=== PATIENT | male | born 1960 | race Caucasian/White ===

== ENCOUNTER 2019-06-16 11:03 | Emergency (ER) | payer OTHER ==
[~2019-06-16] VITALS: Ht 177.8 cm; Wt 95.5 kg
[~2019-06-16 11:03] MED LIST: COLC0.6T6 PO; LOSA50TA14 PO
[2019-06-16 11:36] VITALS: Ht 177.8 cm; Wt 95.5 kg
--- NOTE | 2019-06-16 12:43 | ERD ---
ER Documentation Chief Complaint Chief Complaint Dizziness/weakness since 1000am HPI Patient with history of hypertension and long history of smoking. No history of cardiac issues. This morning while sitting outside and smoking patient had sudden onset chest discomfort lasting 2 to 3 seconds and since then has been asymptomatic. No shortness of breath no chest pain. No exertional symptoms. No headache. Describes a sensation of weakness with no focality. No fever or chills. No nausea or vomiting. Takes intermittent blood pressure meds as needed. No drugs or alcohol. ROS All systems reviewed and are negative except as per history of present illness. Medications Home Meds Reported Medications Colchicine* (Colcrys*) 0.6 Mg Tablet, 0.6 MG PO NEEDED, TAB 06/16/19 Losartan Potassium* (Losartan Potassium*) 50 Mg Tablet, 50 MG PO NEEDED, TAB 06/16/19 Allergies Allergies: Coded Allergies: No Known Allergy (Unverified , 06/16/19) PMhx/Soc History of Surgery: No Anesthesia Reaction: No Hx Neurological Disorder: No Hx Respiratory Disorders: No Hx Cardiac Disorders: Yes (HTN) Hx Psychiatric Problems: No Hx Miscellaneous Medical Probl: No Hx Alcohol Use: Yes (occasional) Hx Substance Use: No Hx Tobacco Use: Yes (1 PPD) Smoking Status: Heavy tobacco smoker Physical Exam Vitals Vital Signs Date Temp Pulse Resp B/P (MAP) Pulse Ox O2 O2 Flow FiO2 Time Delivery Rate 06/16/19 98.2 72 14 134/80 100 11:36 (98) Physical Exam Const: No acute distress Head: Atraumatic Eyes: Normal Conjunctiva ENT: Normal External Ears, Nose and Mouth. Neck: Full range of motion. No meningismus. Resp: Clear to auscultation bilaterally Cardio: Regular rate and rhythm, no murmurs Abd: Soft, non tender, non distended. Normal bowel sounds Skin: No petechiae or rashes Back: No midline or flank tenderness Ext: No cyanosis, or edema Neuro Exam Mental status: oriented, alert, lucid, cooperative, appropriate Cranial nerves: CN 2-12 intact Motor: 5+ UE and LE, flexors and extensors symmetric Sensation: grossly intact to find touch UE and LE symmetrically Cerebellar: normal FTN bilaterally. No tremor noted Gait: normal gait Tone: normal bulk and tone in upper and lower extremities. No atrophy noted. Psych: Normal Mood and Affect Result Diagram: 06/16/19 1213 06/16/19 1213 Results 24 hrs Laboratory Tests Test 06/16/19 12:13 White Blood Count 5.9 10^3/ul Red Blood Count 3.82 10^6/ul Hemoglobin 13.3 g/dl Hematocrit 38.1 % Mean Corpuscular Volume 99.7 fl Mean Corpuscular Hemoglobin 34.8 pg Mean Corpuscular Hemoglobin Concent 34.9 g/dl Red Cell Distribution Width 13.3 % Platelet Count 124 10^3/UL Mean Platelet Volume 10.6 fl Immature Granulocytes % 0.700 % Neutrophils % 50.3 % Lymphocytes % 37.8 % Monocytes % 7.8 % Eosinophils % 2.4 % Basophils % 1.0 % Nucleated Red Blood Cells % 0.0 /100WBC Immature Granulocytes # 0.040 10^3/ul Neutrophils # 3.0 10^3/ul Lymphocytes # 2.2 10^3/ul Monocytes # 0.5 10^3/ul Eosinophils # 0.1 10^3/ul Basophils # 0.1 10^3/ul Nucleated Red Blood Cells # 0.0 10^3/ul Sodium Level 139 mmol/L Potassium Level 4.3 mmol/L Chloride Level 107 mmol/L Carbon Dioxide Level 25 mmol/L Anion Gap 7 Blood Urea Nitrogen 11 mg/dl Creatinine 0.83 mg/dl Est Glomerular Filtrat Rate mL/min > 60 mL/min Glucose Level 98 mg/dl Calcium Level 9.4 mg/dl Troponin I < 0.012 ng/ml B-Type Natriuretic Peptide 85 PG/ML Current Medications Medications Dose Sig/Jeanmarie Start Time Status Last (Trade) Ordered Route PRN Stop Time Admin Dose Reason Admin Sodium 1,000 ml @ Q1H ONCE 06/16/19 06/16/19 Chloride 1,000 mls/hr IV 13:00 12:40 06/16/19 13:59 Procedures/MDM ECG Time: 1246 Ventricular Rate: 58 Rhythm: sinus bradycardia rhythm. ST Segments: without evidence of depressions or elevations Intervals: without evidence of AV block, new BBB, long QT, Brugada No evidence of delta wave. Chest X-ray 1V Interpreted by me: Soft Tissue: No acute abnormalities Bones: No acute abnormalities Mediastinum/Cardiac Silhouette/Lungs: No acute abnormalities Impression: Normal Chest X-Ray The patient presents with chest pain and I considered pulmonary embolism, aortic dissection, pneumothorax among other diagnoses. Evaluation for acute coronary syndrome was performed. The HEART score was utilized for risk stratification and found to be < 3. Based on this evaluation the patients risk of major adv erse cardiac events is <1%. Shared decision making occurred with patient and the decision has been made to discharge the patient for outpatient evaluation and functional study within 72 hours. Departure Diagnosis: Primary Impression: Weakness Condition: Stable GAIL CENTENO MD Jun 16, 2019 12:43
[2019-06-16] MEDS ORDERED: SOD CHLORIDE 0.9% 1,000 ML IV ONE (13:00)
[2019-06-16 14:00] VITALS: BP 130/74; PULSE 54; RESP 16
== END 2019-06-16 14:12 | disposition home or self-care (01) ==
LOC: E/R 11:03
DX: R53.1 Weakness (principal); I10 Essential (primary) hypertension; F17.210 Nicotine dependence, cigarettes, uncomplicated
CPT/HCPCS: 36415; 71045; 80048; 83880; 84484; 85025; 93005; J7030; Z7502